=== PATIENT | female | born 1950 | race Caucasian/White ===

== ENCOUNTER 2016-06-13 15:00 | Outpatient (RCR) | payer OTHER | END 2016-06-28 | disposition home or self-care (01) | LOC: PTY 15:00 | PROVIDERS: ATTEND Internal Medicine | DX: M54.2 Cervicalgia (principal); G89.29 Other chronic pain; M54.5 Low back pain | CPT/HCPCS: 97110; 97140; 97163; G0283 ==

== ENCOUNTER 2016-07-01 14:50 | Outpatient (RCR) | payer OTHER | END 2016-07-28 | disposition home or self-care (01) | LOC: PTY 14:50 | PROVIDERS: ATTEND Internal Medicine | DX: M54.2 Cervicalgia (principal); G89.29 Other chronic pain; M54.5 Low back pain | CPT/HCPCS: 97110; 97140; G0283 ==

== ENCOUNTER 2016-08-08 15:00 | Outpatient (RCR) | payer OTHER | END 2016-08-28 | disposition home or self-care (01) | LOC: PTY 15:00 | PROVIDERS: ATTEND Internal Medicine | DX: M54.2 Cervicalgia (principal); G89.29 Other chronic pain; M54.5 Low back pain; F41.9 Anxiety disorder, unspecified; M19.90 Unspecified osteoarthritis, unspecified site | CPT/HCPCS: 97110; G0283 ==

== ENCOUNTER 2016-09-03 15:00 | Outpatient (RCR) | payer OTHER | END 2016-09-27 | disposition home or self-care (01) | LOC: PTY 15:00 | PROVIDERS: ATTEND Internal Medicine | DX: M54.2 Cervicalgia (principal); G89.29 Other chronic pain | CPT/HCPCS: 97110; 97140; G0283 ==

== ENCOUNTER 2016-10-07 13:30 | Outpatient (RCR) | payer OTHER | END 2016-10-28 | disposition home or self-care (01) | LOC: PTY 13:30 | PROVIDERS: ATTEND Internal Medicine | DX: M54.2 Cervicalgia (principal); G89.29 Other chronic pain | CPT/HCPCS: 97110; 97140; G0283 ==